=== PATIENT | male | born 1990 | race Caucasian/White ===

== ENCOUNTER 2018-01-08 10:31 | Inpatient (IN) ==
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
[2018-01-08 11:26] LABS: Basophils % 0.4 %; Hematocrit 41.4 % (37.5-50.1); Immature Granulocytes % 0.2 % (0-4); Lymphocytes % 34.8 %; Mean Corpuscular HGB Conc 36.2 g/dL (31.6-35.5); Mean Corpuscular Hemoglobin 32.9 pg (28.0-33.3); Mean Corpuscular Volume 90.8 fL (83.0-100.0); Mean Platelet Volume 10.1 fL (9.4-12.4); Monocytes # 0.5 K/mcL (0.0-1.3); Monocytes % 8.8 %; Neutrophils # 3.2 K/mcL (1.6-8.9); Platelet Count 292 K/mcL (140-400); Red Blood Count 4.56 M/mcL (4.19-5.50); Red Cell Distribution Width 12.4 % (11.5-14.5); Segmented Neutrophils % 55.8 %
[2018-01-08 11:34] LABS: INR 1.2; Prothrombin Time 13.6 Seconds (9.4-12.1)
[2018-01-08 11:41] LABS: Alanine Aminotransferase 23 Units/L (7-52); Albumin 4.6 g/dL (3.5-5.7); Albumin/Globulin Ratio 1.8 (1.1-2.2); Alkaline Phosphatase 63 Units/L (34-104); Aspartate Amino Transferase 29 Units/L (13-39); BUN/Creatinine Ratio 7 (6-26); Bilirubin,Total 0.9 mg/dL (0.3-1.0); Blood Urea Nitrogen 5 mg/dL (6-20); Calcium 9.6 mg/dL (8.6-10.3); Carbon Dioxide 32 mEq/L (23-29); Chloride 102 mEq/L (98-107); Globulin 2.6 g/dL (2.4-3.5); Glucose 99 mg/dL (70-105); Osmolality,Calculated 289 (280-300); Potassium 3.8 mEq/L (3.5-5.1); Sodium 141 mEq/L (136-145); Total Protein 7.2 g/dL (6.4-8.9); eGFR For Non-African Americans > 60 (> 60)
[2018-01-08 11:42] LABS: Acetaminophen < 10 mcg/mL (10-20); Salicylate < 2.5 mg/dL (15.0-30.0)
[2018-01-08 11:57] LABS: Thyroid Stimulating Hormone 2.575 mcIU/mL (0.340-5.600)
[2018-01-08 13:05] LABS: Bilirubin,Urine Negative (Negative); Blood,Urine Negative (Negative); Clarity,Urine Clear (Clear); Color,Urine Yellow (Yellow); Glucose,Urine (UA) Normal (Normal); Ketones,Urine Negative (Negative); Leukocyte Esterase,Urine Negative (Negative); Nitrite,Urine Negative (Negative); PH,Urine 8.5 pH Units (5.0-8.0); Protein,Urine Negative (Neg-Trace); Specific Gravity,Urine 1.015 (1.010-1.025); Urobilinogen,Urine Normal (Normal)
[2018-01-08 13:27] LABS: Amphetamine Screen,Urine Negative ng/mL (Cutoff=1000); Barbiturate Screen,Urine Negative ng/mL (Cutoff=200); Benzodiazepines Screen,Urine Negative ng/mL (Cutoff=200); Cannabinoid Screen,Urine Positive ng/mL (Cutoff = 50); Cocaine Screen,Urine Negative ng/mL (Cutoff= 300); Opiate Screen,Urine Negative ng/mL (Cutoff=300); Phencyclidine Screen,Urine Negative ng/mL (Cutoff=25)
[2018-01-08] MEDS ORDERED: Naloxone 0.4 MG/ML INJ IVP PRN (22:26)
[2018-01-08] MEDS: *HR* LORazepam 1 MG TABLET PO SCH (23:28)
[2018-01-09] MEDS: Ibuprofen 800 MG TABLET PO SCH ×2 (08:34→14:24)
[2018-01-09] MEDS: *HR* LORazepam 1 MG TABLET PO SCH (08:34)
[2018-01-09] MEDS: FLUoxetine HCl 10 MG CAPSULE PO SCH (08:34)
[2018-01-09] MEDS: *HR* LORazepam 1 MG TABLET PO PRN (14:25)
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
[2018-01-10] MEDS: Ibuprofen 800 MG TABLET PO SCH ×4 (02:43→22:02)
[2018-01-10] MEDS: traZODone 50 MG TABLET PO SCH ×2 (02:44→22:02)
[2018-01-10] MEDS: FLUoxetine HCl 10 MG CAPSULE PO SCH (08:47)
[2018-01-10] MEDS: *HR* LORazepam 1 MG TABLET PO PRN ×2 (08:47→14:57)
--- NOTE | 2018-01-10 11:30 | Internal Med Progress Note ---
Date of Encounter: 01/10/18 Time of Encounter: 11:23 - Assessment and plan (1) Acute psychosis Current Visit: Yes Status: Acute Assessment and plan: January 10. Continue Seroquel, fluoxetine, and trazodone. Awaiting transfer to inpatient care facility. (2) Substance abuse Current Visit: Yes Status: Acute Assessment and plan: January 10. Continue supportive care. - Subjective Interval history: January 10. No new problems have arisen. - Constitutional Vitals: Temp Pulse Resp BP Pulse Ox 98.8 F 73 16 89/53 94 01/10/18 06:36 01/10/18 06:36 01/10/18 06:36 01/10/18 06:36 01/10/18 06:36 Exam: He is sleeping in bed but awakens. He does not speak. He denies any new problems. Extremities show no edema. Heart is regular without murmurs gallops or ectopics. Lungs are clear anteriorly. Reviewed his vitals and medications. Internal Medicine: Result - Labs CBC & Chem 7: 01/08/18 11:15 01/08/18 11:15 - ABG Interpretation ABG results: PT/INR, D-dimer PT 13.6 Seconds (9.4-12.1) H 01/08/18 11:15 - VTE Reasons for not Prescribing Prophylaxis: Treatment not Indicated - Low risk for VTE Consult Discharge Plan - Plan Referrals: NONE,PCP [Primary Care Provider] -
[2018-01-10] MEDS: Nicotine 21 MG PATCH.TD24 TD SCH (19:31)
[2018-01-11] MEDS: Ibuprofen 800 MG TABLET PO SCH ×2 (08:02→15:34)
[2018-01-11] MEDS: FLUoxetine HCl 10 MG CAPSULE PO SCH (08:03)
[2018-01-11] MEDS: Nicotine 21 MG PATCH.TD24 TD SCH (08:03)
--- NOTE | 2018-01-11 16:42 | Internal Med Progress Note ---
Date of Encounter: 01/11/18 Time of Encounter: 16:30 - Assessment and plan (1) Acute psychosis Current Visit: Yes Status: Acute Assessment and plan: January 10. Continue Seroquel, fluoxetine, and trazodone. Awaiting transfer to inpatient care facility. January 11. Continue present medication. [facility] [place] approval for transfer to inpatient psych facility. (2) Substance abuse Current Visit: Yes Status: Acute Assessment and plan: January 10. Continue supportive care. (3) Flank pain Current Visit: Yes Status: Acute Assessment and plan: January 11. Recheck UA - Subjective Interval history: January 10. No new problems have arisen. January 11. He reports some discomfort in his right flank but states it has been there for several days. He has no new complaints otherwise. - Constitutional Vitals: Temp Pulse Resp BP Pulse Ox 98.6 F 73 20 130/79 96 01/11/18 12:37 01/11/18 12:37 01/11/18 12:37 01/11/18 12:37 01/11/18 12:37 Exam: He is resting comfortably in bed and appears in no acute distress. His affect is flat. He answers questions appropriately. No skin abnormalities seen over t he right flank area. I reviewed his medications and past lab results. Internal Medicine: Result - Labs CBC & Chem 7: 01/08/18 11:15 01/08/18 11:15 - ABG Interpretation ABG results: PT/INR, D-dimer PT 13.6 Seconds (9.4-12.1) H 01/08/18 11:15 - VTE Reasons for not Prescribing Prophylaxis: Treatment not Indicated - Low risk for VTE Consult Discharge Plan - Plan Referrals: NONE,PCP [Primary Care Provider] -
[2018-01-11] MEDS ORDERED: Ibuprofen 800 MG TABLET PO PRN (17:26)
[2018-01-11] MEDS: *HR* LORazepam 1 MG TABLET PO SCH (17:27)
[2018-01-11] MEDS: traZODone 50 MG TABLET PO SCH (18:54)
[2018-01-11 20:20] LABS: Bilirubin,Urine Negative (Negative); Blood,Urine Negative (Negative); Clarity,Urine Clear (Clear); Color,Urine Straw (Yellow); Glucose,Urine (UA) Normal (Normal); Ketones,Urine Negative (Negative); Leukocyte Esterase,Urine Negative (Negative); Nitrite,Urine Negative (Negative); Protein,Urine Negative (Neg-Trace); Urobilinogen,Urine Normal (Normal)
[2018-01-12] MEDS: FLUoxetine HCl 10 MG CAPSULE PO SCH (07:56)
[2018-01-12] MEDS: Nicotine 21 MG PATCH.TD24 TD SCH (07:56)
[2018-01-12] MEDS: *HR* LORazepam 1 MG TABLET PO PRN (15:13)
[2018-01-12] MEDS: *HR* LORazepam 2 MG/ML VIAL IVP PRN (18:41)
--- NOTE | 2018-01-12 19:13 | Internal Med Progress Note ---
Date of Encounter: 01/12/18 Time of Encounter: 19:05 - Assessment and plan (1) Acute psychosis Current Visit: Yes Status: Acute Assessment and plan: January 10. Continue Seroquel, fluoxetine, and trazodone. Awaiting transfer to inpatient care facility. January 11. Continue present medication. [facility] awaiting approval for transfer to inpatient psych facility. January 12. I completed paperwork today for the probate court to intervene. (2) Substance abuse Current Visit: Yes Status: Acute Assessment and plan: January 10. Continue supportive care. (3) Flank pain Current Visit: Yes Status: Acute Assessment and plan: January 11. Recheck UA January 12. Repeat UA was unremarkable. Observe. - Subjective Interval history: January 10. No new problems have arisen. January 11. He reports some discomfort in his right flank but states it has been there for several days. He has no new complaints otherwise. January 12. He has no new complaints. - Constitutional Vitals: Temp Pulse Resp BP Pulse Ox 97.6 F 89 16 144/93 97 01/12/18 14:00 01/12/18 14:00 01/12/18 14:00 01/12/18 14:00 01/12/18 14:00 Exam: He is resting comfortably in bed and appears in no acute distress. He has significant speech impediment and I cannot understand everything he is saying. I reviewed his medications and lab results. Internal Medicine: Result - Labs CBC & Chem 7: 01/08/18 11:15 01/08/18 11:15 Labs: Urine 01/11/18 Range/Units 19:50 Urine Color Straw (Yellow) Urine Clarity Clear (Clear) Urine pH 6.0 (5.0-8.0) pH Units Ur Specific [place] 1.010 (1.010-1.025) Urine Protein Negative (Neg-Trace) mg/dL Urine Glucose (UA) Normal (Normal) mg/dL - ABG Interpretation ABG results: PT/INR, D-dimer PT 13.6 Seconds (9.4-12.1) H 01/08/18 11:15 - VTE Reasons for not Prescribing Prophylaxis: Treatment not Indicated - Low risk for VTE Consult Discharge Plan - Plan Referrals: NONE,PCP [Primary Care Provider] -
[2018-01-12] MEDS: traZODone 50 MG TABLET PO SCH (20:13)
[2018-01-13] MEDS: *HR* LORazepam 2 MG/ML VIAL IVP PRN ×5 (02:31→13:54)
[2018-01-13] MEDS: *HR* LORazepam 1 MG TABLET PO PRN (03:45)
[2018-01-13] MEDS: Nicotine 21 MG PATCH.TD24 TD SCH (08:24)
[2018-01-13] MEDS: FLUoxetine HCl 10 MG CAPSULE PO SCH (08:24)
[2018-01-13 08:27] VITALS: BP 105/65
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
== END 2018-01-13 15:00 | disposition other institution (70) ==
LOC: INPPIK 10:31 → EMEROOPIK 10:31 → INPPIK 01-09 00:18
PROVIDERS: ADMIT Internal Medicine; ATTEND Internal Medicine